=== PATIENT | female | born 2000 | race Caucasian/White ===

== ENCOUNTER 2020-12-19 12:02 | Emergency (ER) | payer OTHER ==
[~2020-12-19 12:02] MED LIST: BACTRIM DS TAB1 EACH PO; MOTRIN600 MG PO; PROAIR HFA8.5 GM INH; SINGULAIR10 MG PO; VENTOLIN (2.5 MG/3 M INH
[2020-12-19 13:11] LABS: BASOPHIL 0.4 % (0-2); EOSINOPHIL 2.2 % (0-5); HCT 44.4 % (37.0-47.0); HGB 15.5 g/dl (12.5-16.0); LYMPHOCYTE 27.6 % (15-48); MCH 30.9 pg (25.0-31.0); MCHC 34.9 g/dL (32.0-36.0); MCV 88.4 fL (78.0-100.0); MONOCYTE 14.5 % (0-12); MPV 9.5 fL (6.0-9.5); NEUTROPHIL 55.1 % (41-80); NRBC 0; PLT 220 K/uL (150-400); RBC 5.02 M/uL (4.20-5.40); RDW 11.6 % (11.5-14.0)
[2020-12-19 13:15] LABS: BILIRUBIN 1+ mg/dL (NEGATIVE); BLOOD NEGATIVE Ery/uL (NEGATIVE); CLARITY CLEAR (CLEAR); COLOR YELLOW (YELLOW); GLUCOSE (U) NORMAL (NORMAL); LEUKOCYTES NEGATIVE Leu/uL (NEGATIVE); NITRITE NEGATIVE (NEGATIVE); PROTEIN NEGATIVE (NEGATIVE); SPECIFIC GRAVITY 1.025 (1.001-1.030)
[2020-12-19 13:23] LABS: BILIRUBIN - TOTAL 0.5 mg/dL (0.2-1.0); BUN/CREAT RATIO (CALC) 20.6 RATIO; CREATININE 0.68 mg/dL (0.51-0.95); GLOBULIN (CALCULATION) 4.3 g/dL; POTASSIUM 3.7 mmol/L (3.5-5.1); TOTAL PROTEIN 8.3 g/dL (6.4-8.2)
[2020-12-19] MEDS ORDERED: ZOFRAN4 M1 PO (15:06)
== END 2020-12-19 15:29 | disposition home or self-care (01) ==
LOC: FER 12:02
PROVIDERS: Emergency Medicine
DX: R11.2 Nausea with vomiting, unspecified (principal); E86.0 Dehydration; R19.7 Diarrhea, unspecified; J45.909 Unspecified asthma, uncomplicated
CPT/HCPCS: 36415; 80053; 81003; 84145; 85025; 99284; J7030